=== PATIENT | female | born 1940 | race Two or more races ===

== ENCOUNTER 2017-11-10 20:22 | Emergency (ER) | payer MEDICARE ==
[~2017-11-10] VITALS: Ht 165.1 cm; Wt 74.8 kg
[2017-11-10 20:22] VITALS: BP 132/74
[2017-11-10] MEDS ORDERED: HYDROCODONE/APAP 5/325MG 1 EACH TABLET ONE (20:49)
[2017-11-10] MEDS ORDERED: ONDANSETRON 4 MG TAB.RAPDIS ONE (20:49)
[2017-11-10] MEDS ORDERED: ONDANSETRON 4 MG TAB.RAPDIS PO ONE (21:00)
[2017-11-10] MEDS ORDERED: HYDROCODONE/APAP 5/325MG 1 EACH TABLET PO ONE (21:00)
--- NOTE | 2017-11-10 21:51 | NUR ---
Giancarlo romero in EDM - 11/10/17 at 2351 by CHASIDY Patient discharged to home in stable condition. Written and verbal after care instructions along wit RX given. Patient verbalizes understanding of instruction. VSS upon discharge. pt ambulated with steady gait out of ER.
--- NOTE | 2017-11-10 22:00 | NUR ---
PT STATES HER SON WAS SUPPOSED TO PICK HER UP BUT SHE DOES NOT REMEBER HIS PHONE NUMBER. PT STATES SHE HAS NO CELLPHONE OR NOTEBOOK WITH HER FAMILIES PHONE NUMBERS ON HER. PT STATES SHE CAN TAKE A CAB BACK HOME AND HER SON WILL "MOST LIKELY BE HOME AND OPEN THE DOOR." PT STATES "ALL I NEED IS A WALKER AND I CAN GET HOME." PT WILL BE RESTING IN BED UNTIL SAFE TRANSPORT IS ARRANGED.
--- NOTE | 2017-11-10 22:22 | NUR ---
CALLED PATIENTS FRIEND [phone]
--- NOTE | 2017-11-10 23:50 | NUR ---
BEDSIDE SPEAKING WITH PT.
--- NOTE | 2017-11-10 23:55 | NUR ---
Patient is resting comfortably in bed with eyes closed. Easily aroused. VSS
[2017-11-10] MEDS ORDERED: oxyCODONE/APAP (5/325 MG) 1 UDTAB TABLET ONE (23:59)
[2017-11-11] MEDS ORDERED: oxyCODONE/APAP (5/325 MG) 1 UDTAB TABLET PO ONE
[2017-11-11] MEDS ORDERED: CEPHALEXIN MONOHYDRATE 500 MG CAPSULE PO ONE ×2
--- NOTE | 2017-11-11 01:02 | NUR ---
Patient is resting comfortably in bed with eyes closed. Easily aroused. VSS. No pt discomfort noted.
[2017-11-11] MEDS ORDERED: HYDROCODONE/APAP 10/325MG 1 EA TABLET PO ONE (04:00)
[2017-11-11] MEDS ORDERED: ONDANSETRON 4 MG TAB.RAPDIS SL ONE (04:00)
[2017-11-11] MEDS ORDERED: HYDROCODONE/APAP 10/325MG 1 EA TABLET ONE (04:49)
[2017-11-11] MEDS ORDERED: ONDANSETRON 4 MG TAB.RAPDIS ONE (04:50)
--- NOTE | 2017-11-11 06:40 | NUR ---
called RL, was told she would reach out to the pt's sister or other family members. RL states she will call [facility] back with any pertinent information
--- NOTE | 2017-11-11 08:09 | NUR ---
HARINDER MORALES (SON) [phone] PROVIDED BY [facility]
== END 2017-11-11 09:40 | disposition home or self-care (01) ==
LOC: ER 20:24
DX: S02.2XXA Fracture of nasal bones, initial encounter for closed fracture (principal); S01.21XA Laceration without foreign body of nose, initial encounter; S05.11XA Contusion of eyeball and orbital tissues, right eye, initial encounter; F41.9 Anxiety disorder, unspecified; I10 Essential (primary) hypertension; M25.559 Pain in unspecified hip; G89.29 Other chronic pain; R53.1 Weakness; Z88.2 Allergy status to sulfonamides; W01.198A Fall on same level from slipping, tripping and stumbling with subsequent striking against other object, initial encounter; Y93.89 Activity, other specified; Y92.89 Other specified places as the place of occurrence of the external cause; Y99.8 Other external cause status
CPT/HCPCS: 70450-TC; 70486-TC; 72125-TC; A4606; A6402; Q0162; Z7610

== ENCOUNTER 2017-12-12 22:36 | Inpatient (IN) | payer MEDICARE, OTHER ==
[~2017-12-12] VITALS: Ht 157.5 cm; Wt 79.4 kg
[2017-12-12] MEDS ORDERED: IV NS 0.9% 1,000 ML BAG IV ONE (23:00)
--- NOTE | 2017-12-12 23:00 | NUR ---
PT A/OX4 BREATHING EFFORTLESSLY ON ROOM AIR, PT STATES SHE IS HVAING DIARRHEA AND NAUSEA X 1 DAY, PT STATES IT STARTED EARLIER TODAY AND HAS NOT BEEN ABLE TO CLEAN HER SELF AND HAS 2 DIAPERS ON BUT WAS NOT ABLE TO CLEAN HERSELF, PT HAS DIARRHEA ON HANDS AND FOREARMS AND LEGS, PT PUT ON MONITOR, GIVEN GOWN, VSS, IV PLACED, LABS DRAWN, MD MADE AWARE WILL CONTINUE TO MONITOR.
[2017-12-12 23:19] LABS: BASOPHILS # (AUTO) 0.2 /CMM (0.0-0.2); BASOPHILS % (AUTO) 1.4 % (0.0-2.0); EOSINOPHILS % (AUTO) 3.8 % (0.0-6.0); HEMATOCRIT 43 % (33-45); HEMOGLOBIN 14.4 g/dL (11.5-14.8); LYMPHOCYTES % (AUTO) 7.9 % (20.0-44.0); MEAN CORPUSCULAR HGB CONC 34 g/dl (31.0-36.0); MEAN CORPUSCULAR VOLUME 96 fL (82-100); MONOCYTES # (AUTO) 0.6 /CMM (0.1-1.30); MONOCYTES % (AUTO) 4.7 % (2.0-12.0); NEUTROPHILS # (AUTO) 10.7 /CMM (1.8-8.9); NEUTROPHILS % (AUTO) 82.2 % (43.0-81.0); PLATELET COUNT (AUTO) 402 /CMM (150-450); RDW COEFFICIENT OF VARIATION 13.4 (11.5-15.0); RED BLOOD CELL COUNT(AUTO) 4.48 MIL/uL (4.0-5.2)
[2017-12-12] MEDS ORDERED: ONDANSETRON HCL/PF 4 MG/2 ML VIAL IV ONE (23:30)
--- NOTE | 2017-12-12 23:30 | NUR ---
PT DIRTY DIAPER REMOVED AND PT CLEANED WITH HELP OF TA HAMILTON, A NEW DIAPER WAS PUT ON AND NEW SHEETS WERE APPLIED TO THE BED, PT STATES SHE FEELS SO MUCH BETTER BEING CLEAN, MD MADE AWARE WILL CONTINUE TO MONITOR.
--- NOTE | 2017-12-12 23:40 | NUR ---
PT TO CT
[2017-12-12 23:41] LABS: CALCIUM, SERUM 9.5 mg/dL (8.5-10.1); CARBON DIOXIDE 22 mmol/L (21-32); CHLORIDE 107 mmol/L (98-107); CREATININE 0.5 mg/dL (0.6-1.3); GLUCOSE 126 mg/dL (74-106); POTASSIUM 3.1 mmol/L (3.5-5.1); SODIUM SERUM 143 mmol/L (136-145); UREA NITROGEN, BLOOD 11 mg/dL (7-18)
[2017-12-12 23:46] LABS: ALANINE AMINOTRANSFERASE 25 U/L (12-78); ALBUMIN 3.8 g/dL (3.4-5.0); ALKALINE PHOSPHATASE 164 U/L (46-116); ASPARTATE AMINOTRANSFERASE 25 U/L (15-37); BILIRUBIN,DIRECT 0.1 mg/dL (0.0-0.2); BILIRUBIN,TOTAL 0.5 mg/dL (0.2-1.0); LIPASE 165 U/L (73-393); TOTAL PROTEIN, SERUM 7.2 g/dL (6.4-8.2); TROPONIN I < 0.017 ng/mL (0.00-0.056)
[2017-12-12] MEDS ORDERED: ONDANSETRON HCL/PF 4 MG/2 ML VIAL ONE (23:51)
--- NOTE | 2017-12-12 23:51 | NUR ---
PT RETURNED FROM CT.
[2017-12-13] VITALS (7 sets, daily range): BP systolic 129–135; BP diastolic 56–70
[2017-12-13] MEDS ORDERED: POTASSIUM CHLORIDE 20 MEQ TAB.PRT.SR PO ONE ×4 (01:30→02:30)
[2017-12-13] MEDS ORDERED: ACETAMINOPHEN 325 MG TABLET PO PRN (02:00)
[2017-12-13] MEDS ORDERED: MAGNESIUM HYDROXIDE 30 ML UDC PO PRN (02:00)
[2017-12-13] MEDS ORDERED: ZOLPIDEM TARTRATE 5 MG TABLET PO PRN (02:00)
[2017-12-13] MEDS ORDERED: Z GUARD REMEDY 2 OZ OINT TP PRN (02:00)
[2017-12-13] MEDS ORDERED: ONDANSETRON HCL/PF 4 MG/2 ML VIAL IVP PRN (02:00)
[2017-12-13] MEDS ORDERED: ENOXAPARIN SODIUM 40 MG/0.4 ML DISP.SYRIN SQ SCH (02:00)
[2017-12-13] MEDS ORDERED: MAG HYDROX/AL HYDROX/SIMETH 30 ML UDC PO PRN (02:00)
--- NOTE | 2017-12-13 02:00 | NUR ---
REPORT GIVEN TO DIANNA/RN ON BEHALF OF PRIMARY NURSE RAMILA.
[2017-12-13] MEDS: IV NS 0.9% 1,000 ML IV PRN ×2 (02:44→18:29)
[2017-12-13] MEDS ORDERED: METRONIDAZOLE 500MG/ NS 100ML 100 ML IV ONE (02:45)
[2017-12-13] MEDS: ENOXAPARIN SODIUM 40 MG/0.4 ML DISP.SYRIN SQ SCH ×2 (02:56→21:17)
[2017-12-13] MEDS: LOPERAMIDE HCL (2 MG CAP) 2 MG CAPSULE PO PRN ×3 (02:56→21:16)
[2017-12-13] MEDS: METRONIDAZOLE 500MG/ NS 100ML 500 MG in PREMIX 1 EA IV SCH ×3 (03:00→21:18)
[2017-12-13] MEDS: HYDROCODONE/APAP 5/325MG 1 EACH TABLET PO PRN ×4 (03:00→11:40)
--- NOTE | 2017-12-13 03:00 | NUR ---
TIRE SERVICER NOTES PT C/O DIARRHEA. IMODIUM GIVEN ORDERED. WILL CONTINUE TO MONITOR
--- NOTE | 2017-12-13 06:50 | NUR ---
COMPUTER TERMINAL OPERATOR NOTES AWAKE & RESPONSIVE. NOT IN ANY DISTRESS. NO SOB NOTED. DENIES ANY PAIN OR DISCOMFORT AT THIS TIME. ON TELE SR @ 96 WITH IVF INFUSING WELL. AM CARE DONE. MONITORED ACCORDINGLY. CALL LIGHT WITHIN REACH. BED IN LOWEST POSITION. SR UP X 2 FOR SAFETY. WILL ENDORSE TO NEXT SHIFT.
--- NOTE | 2017-12-13 07:10 | NUR ---
TELE OPENING. PT RECEIVED A&0X3, AWAKE AND RESTING. PT TOLERATING ROOM AIR WITHOUT SOB OR RESP DISTRESS. PT REPORTS ADEQUATE PAIN MANAGEMENT AT THIS TIME. PT REPORTS MINOR ANXIETY. PT WITH IVC AT L IVC INTACT AND SALINE FLUSH PATENT. PT REPORTING BMX1. PT BED IN LOWEST LOCKED POSITION WITH HANDRAILSX2 AND CALL BARNETT WITHIN REACH. PT BRIEFED ON TODAY'S POC AND IS WITHOUT CONCERN OR COMPLAINT AT THIS TIME.
[2017-12-13] MEDS ORDERED: MULT1TAB73 PO (07:35)
[2017-12-13] MEDS ORDERED: HYDR-548 PO (07:35)
[2017-12-13] MEDS ORDERED: CHOL20004 PO (07:35)
[2017-12-13] MEDS ORDERED: BUTA1CAP46 PO (07:35)
[2017-12-13] MEDS ORDERED: ATOR40TA PO (07:35)
[2017-12-13] MEDS ORDERED: GABA400C PO (07:35)
[2017-12-13] MEDS ORDERED: NEBI5TAB8 PO (07:35)
[2017-12-13] MEDS ORDERED: FOLI1TAB16 PO (07:35)
[2017-12-13] MEDS: CHOLECALCIFEROL 1,000 UNIT TABLET (VIT D3) PO SCH (11:39)
[2017-12-13] MEDS: MULTIVITAMINS,THERAGRAN 1 UDTAB TABLET PO SCH (11:40)
--- NOTE | 2017-12-13 14:00 | NUR ---
DEHYDROGENATION OPERATOR NOTES. PT WITH SIGNIFICANT ANXIETY. MD REQUESTING XANAX 1MG TDS, ORDERS PLACED AND ADMINISTERED.
[2017-12-13] MEDS ORDERED: ALPRAZOLAM 1 MG TABLET PO SCH (14:06)
[2017-12-13] MEDS: GABAPENTIN 400 MG CAPSULE PO SCH ×3 (14:20→21:16)
[2017-12-13] MEDS: ARIPIPRAZOLE 2 MG TABLET PO SCH (15:00)
[2017-12-13] MEDS: BUTALB/APAP/CAFFEINE 1 EACH TABLET PO PRN (15:22)
[2017-12-13] MEDS: BUPROPION XL 150 MG TAB.ER.24 PO SCH (15:23)
--- NOTE | 2017-12-13 18:08 | NUR ---
TELE CLOSING NOTES. PT REMAINS A&0X3. TELE SR 75. PT TOLERATING ROOM AIR AND DENIES PAIN AND IS WITHOUT RESP DISTRESS DISCOMFORT. PT WITH BMX2 TODAY. NO NAUSE THIS AFTERNOON. PT REPORTS ADEQUATE PAIN MANAGEMENT AT THIS TIME. PT WITH IVC AT L IVC INTACT AND OPERATIONAL. PT BED IN LOWEST LOCKED POSITION WITH HANDRAILSX2 AND CALL BARNETT WITHIN REACH. ALL DAY NURSE DUTIES ATTENDED TO. PT IS WITHOUT CONCERN OR COMPLAINT AT THIS TIME. WILL ENDORSE TO NIGHT NURSE FOR FADIA.
--- NOTE | 2017-12-13 19:15 | NUR ---
MEAT PACKAGER NOTES RECEIVED PT ON BED. A/O X4 ON ROOM AIR SATURATING WELL. ON TELE MONITOR SR 75. IV ACCES ON RAC G20 NS @75CC/HR RUNNING WELL. PATENT AND INTACT. HEAD OF BED ELEVATED. SIDE RAILS UP. CALL LIGHT WITHIN REACH. WILL CONTINUE TO MONITOR PT CLOSELY.
[2017-12-13] MEDS: LORAZEPAM 1 MG TABLET PO PRN (21:17)
[2017-12-13] MEDS ORDERED: ATORVASTATIN 40 MG TABLET PO SCH (22:00)
[2017-12-14] VITALS: BP 136/72
[2017-12-14] MEDS: HYDROCODONE/APAP 5/325MG 1 EACH TABLET PO PRN ×2 (01:39→13:49)
[2017-12-14 04:00] VITALS: BP 143/72
[2017-12-14] MEDS: GABAPENTIN 400 MG CAPSULE PO SCH ×3 (06:03→15:12)
[2017-12-14] MEDS: METRONIDAZOLE 500MG/ NS 100ML 500 MG in PREMIX 1 EA IV SCH ×2 (06:03→12:48)
--- NOTE | 2017-12-14 06:34 | NUR ---
EDGING MACHINE CATCHER NOTES NO ACUTE CHANGES NOTED DURING THE SHIFT. PROVIDED COMFORT AND SAFETY. WILL ENDORSE TO THE AM NURSE FOR FADIA.
[2017-12-14 06:43] LABS: BASOPHILS % (AUTO) 0.7 % (0.0-2.0); EOSINOPHILS % (AUTO) 11.3 % (0.0-6.0); HEMATOCRIT 35 % (33-45); LYMPHOCYTES # (AUTO) 1.9 /CMM (0.8-4.8); LYMPHOCYTES % (AUTO) 27.2 % (20.0-44.0); MEAN CORPUSCULAR HGB CONC 34 g/dl (31.0-36.0); MEAN CORPUSCULAR VOLUME 97 fL (82-100); MONOCYTES # (AUTO) 0.9 /CMM (0.1-1.30); MONOCYTES % (AUTO) 12.1 % (2.0-12.0); NEUTROPHILS # (AUTO) 3.5 /CMM (1.8-8.9); NEUTROPHILS % (AUTO) 48.7 % (43.0-81.0); PLATELET COUNT (AUTO) 309 /CMM (150-450); RDW COEFFICIENT OF VARIATION 14.2 (11.5-15.0); RED BLOOD CELL COUNT(AUTO) 3.64 MIL/uL (4.0-5.2); WHITE BLOOD COUNT (AUTO) 7.2 K/uL (4.3-11.0)
[2017-12-14 06:49] LABS: CALCIUM, SERUM 8.4 mg/dL (8.5-10.1); CARBON DIOXIDE 23 mmol/L (21-32); CHLORIDE 114 mmol/L (98-107); CREATININE 0.6 mg/dL (0.6-1.3); GLUCOSE 85 mg/dL (74-106); MAGNESIUM 1.7 mg/dL (1.8-2.4); PHOSPHORUS 3.7 mg/dL (2.5-4.9); POTASSIUM 3.5 mmol/L (3.5-5.1); SODIUM SERUM 147 mmol/L (136-145); UREA NITROGEN, BLOOD 5 mg/dL (7-18)
--- NOTE | 2017-12-14 07:35 | NUR ---
WEB DEVELOPMENT DIRECTOR NOTE: RECEIVED PATIENT IN BED, AWAKE, ALERT AND VERBALLY RESPONSIVE WATCHING TELEVISION. RESPIRATION IS EVEN AND UNLABORED SATURATING 97% IN ROOM AIR. ON BOLT SAWYER, SR HR= 82. DENIED ANY PAIN. (R) AC IV PERIPHERAL LINE NOTED PATENT AND INTACT INFUSING NS@75CC/HR. BED LOCKED AT ALL TIMES AND IN LOWEST POSITION. HOB ELEVATED. WILL MONITOR FOR ANY EPISODE OF DIARRHEA. CALL LIGHT WITHIN REACH. NEEDS ANTICIPATED.
[2017-12-14 08:00] VITALS: BP 146/61
[2017-12-14] MEDS: MULTIVITAMINS,THERAGRAN 1 UDTAB TABLET PO SCH (08:21)
[2017-12-14] MEDS: CHOLECALCIFEROL 1,000 UNIT TABLET (VIT D3) PO SCH (08:21)
[2017-12-14] MEDS: ARIPIPRAZOLE 2 MG TABLET PO SCH (08:21)
[2017-12-14] MEDS: BUPROPION XL 150 MG TAB.ER.24 PO SCH (08:22)
[2017-12-14] MEDS ORDERED: FOLIC ACID 1 MG TABLET PO SCH (09:00)
[2017-12-14] MEDS: Magnesium 1GM/D5W 100ML PREMIX 100 ML IV SCH ×2 (10:29→11:35)
[2017-12-14 11:12] LABS: EOSINOPHILS % (MANUAL) 16 % (0-4); LYMPHOCYTES % (MANUAL) 12 % (16-48); MONOCYTES % (MANUAL) 6 % (0-11.0); NEUTROPHILS % (MANUAL) 66 (42-76)
[2017-12-14] MEDS: BUTALB/APAP/CAFFEINE 1 EACH TABLET PO PRN (11:17)
[2017-12-14] MEDS ORDERED: BUPR-51 PO (12:02)
[2017-12-14] MEDS ORDERED: ARIP2TAB3 PO (12:02)
[2017-12-14] MEDS: LORAZEPAM 1 MG TABLET PO PRN (12:51)
--- NOTE | 2017-12-14 14:33 | NUR ---
Social service consult requested by Dr. Kaufman to provide pt. with resources. Pt. is a 77 year old female who was admitted to [facility] for Diarrhea and generalized weakness. CHAR and bilingual patient support caseworker Lele met with pt. bedside. Pt. is alert and oriented x 4. Pt. has been suffering from depression for years and taking antidepressant. However, since the of her daughter, pt's depression has gotten worse. Pt. has taken Xanax in the past. Pt's emergency contact is her son at [phone]. Pt. resides with her son. Pt. got teary eyed during the assessment. Pt. has been to therapy before in the past and would like to see a psychologist in the near future. CHAR gave pt. the following referrals: Becky Devries and Hieu Vargas . SW provided active listening and emotional support to the pt. SW also offered pt. grief counseling, however pt. declined. No other social service needs are requested at this time. SW is available, if needed.
[2017-12-14 16:00] VITALS: BP_SYST 149; BP_SYST 185; BP_DIAS 63; BP_DIAS 82
--- NOTE | 2017-12-14 17:15 | NUR ---
MS RN NOTE: PATIENT WAS DISCHARGED W/ HIS SON, ANDREW POWER VIA PRIVATE CAR. EXIT CARE WAS DONE. PATIENT TEACHING WAS ALSO PERFORMED. PRESCRIPTION FOR ABILIFY AND WELLBUTRIN WAS GIVEN AND THE REFERRALS FOR PSYCHOLOGIST W/ TELEPHONE NUMBERS FROM THE PASSENGER REPRESENTATIVE. THE FOLLOW-UP APPOINTMENT AT [facility] WAS ALSO GIV[facility] FOR 12/17/17 @1330. PATIENT AND ANDREW, SON WAS IN A HURRY TO LEAVE THE HOSPITAL DUE TO PERSONAL REASON. PATIENT'S (R) AC IV LINE WAS REMOVED AND COVERED W/ DRY GAUZE AND SECURED W/ TAPE. NO EPISODE OF DIARRHEA NOTED DURING THE SHIFT. PATIENT VERBALIZED UNDERSTANDING AND AWARE OF THE FOLLOW-UP APPOINTMENTS AND REFERRALS MADE FOR HER. ALL BELONGINGS AND HOME MEDICATIONS WERE RELEASED BACK TO THE PATIENT UPON DISCHARGE.
[2018-02-24] MEDS ORDERED: LORA1TAB PO (09:37)
[2018-02-24] MEDS ORDERED: ARIP5TAB10 PO (09:37)
== END 2017-12-14 15:00 | disposition home or self-care (01) | DRG 392 ==
LOC: ER 22:38 → MEDSG1 12-13 02:09 → TELE1 12-13 02:20 → MEDSG1 12-14 08:55
PROVIDERS: ADMIT Internal Medicine; ATTEND Internal Medicine
DX: A09 Infectious gastroenteritis and colitis, unspecified (principal); F33.2 Major depressive disorder, recurrent severe without psychotic features; E86.0 Dehydration; E78.5 Hyperlipidemia, unspecified; I10 Essential (primary) hypertension; F41.9 Anxiety disorder, unspecified; Z88.2 Allergy status to sulfonamides; M16.10 Unilateral primary osteoarthritis, unspecified hip; Z90.710 Acquired absence of both cervix and uterus; Z81.8 Family history of other mental and behavioral disorders; F43.29 Adjustment disorder with other symptoms; G43.909 Migraine, unspecified, not intractable, without status migrainosus; D72.829 Elevated white blood cell count, unspecified
CPT/HCPCS: 36415; 80048-TC; 80076-TC; 83690-TC; 83735-TC; 84100-TC; 84484-TC; 85025-TC; 87081-TC; A4216; A4606; J1650; J2405; J3475; J3490; J7030; Z7610

== ENCOUNTER 2018-02-05 08:31 | Emergency (ER) | payer MEDICARE, OTHER ==
[~2018-02-05] VITALS: Ht 167.6 cm; Wt 81.6 kg
[~2018-02-05 08:31] MED LIST: ARIP2TAB3 PO; ATOR40TA PO; BUPR-51 PO; BUTA1CAP46 PO; CHOL20004 PO; FOLI1TAB16 PO; GABA400C PO; HYDR-548 PO; MULT1TAB73 PO; NEBI5TAB8 PO
--- NOTE | 2018-02-05 08:35 | NUR ---
AAOX3, BIBRA 41 FROM HOME C/O R SHOULDER AND BACK PAIN WHEN SHE WOKE UP THIS AM. RR IS EVEN AND UNLABORED WITH NAD NOTED. SKIN IS WARM AND DRY. AWAITING MD FOR EVAL.
--- NOTE | 2018-02-05 08:47 | NUR ---
TA MORRIS AT FOR CECI.
[2018-02-05] MEDS ORDERED: KETOROLAC TROMETHAMINE INJ 30 MG/ML VIAL IM ONE (09:00)
--- NOTE | 2018-02-05 09:35 | NUR ---
Patient discharged to home in stable condition. Written and verbal after care instructions given. Patient verbalizes understanding of instruction.
--- NOTE | 2018-02-05 09:40 | NUR ---
BLAKE,SON, CALLED, CELL#[phone], WORK PHONE# [phone], [facility] PATIENT LIVE ALONE AND CAN'T TAKE CARE OF HERSELF. PATIENT SAID THAT SHE LIVES WITH HER SON, BLAKE, AND ALL SHE IS ACTUALLY ALL DRESSED UP READY TO GO.
[2018-02-05 09:41] VITALS: BP 162/75
[2018-02-24] MEDS ORDERED: ARIP5TAB10 PO (09:37)
[2018-02-24] MEDS ORDERED: LORA1TAB PO (09:37)
== END 2018-02-05 09:43 | disposition home or self-care (01) ==
LOC: ER 08:33
DX: S46.911A Strain of unspecified muscle, fascia and tendon at shoulder and upper arm level, right arm, initial encounter (principal); S23.3XXA Sprain of ligaments of thoracic spine, initial encounter; G89.4 Chronic pain syndrome; I10 Essential (primary) hypertension; R94.31 Abnormal electrocardiogram [ECG] [EKG]; Z88.2 Allergy status to sulfonamides; X58.XXXA Exposure to other specified factors, initial encounter; Y93.89 Activity, other specified; Y92.89 Other specified places as the place of occurrence of the external cause; Y99.8 Other external cause status
CPT/HCPCS: 93005; 96372; 99283; A4606; 73502; Z7610

== ENCOUNTER 2018-02-05 10:54 | Outpatient (CLI) | payer MEDICARE ==
[2018-02-24] MEDS ORDERED: LORA1TAB PO (09:37)
[2018-02-24] MEDS ORDERED: ARIP5TAB10 PO (09:37)
== END 2018-02-05 23:59 | disposition home or self-care (01) ==
LOC: RAD 10:54
PROVIDERS: ATTEND Family Medicine
DX: M16.12 Unilateral primary osteoarthritis, left hip (principal); M47.896 Other spondylosis, lumbar region
CPT/HCPCS: 73502

== ENCOUNTER 2018-02-05 14:22 | Emergency (ER) | payer MEDICARE, OTHER ==
[~2018-02-05] VITALS: Ht 162.6 cm; Wt 72.6 kg
--- NOTE | 2018-02-05 14:31 | NUR ---
A/OX3, PT CAME TO ER AND WAS SENT BY DR BARFIELD FOR HIGH BP. UPON TRIAGE ASSESSMENT, BP IS 192/108. PT DENIES CHEST PAIN OR SOB. SKIN IS WARM AND NON DIAPHROETC. RR EVEN AND UNLABORED. ALL NEEDS ARE ATTEBDED, KEPT WARM AND COMFORTABLE. PENDING ER MD EVALUATION
[2018-02-05 15:34] LABS: BASOPHILS # (AUTO) 0.4 /CMM (0.0-0.2); BASOPHILS % (AUTO) 2.9 % (0.0-2.0); EOSINOPHILS % (AUTO) 3.1 % (0.0-6.0); HEMATOCRIT 44 % (33-45); HEMOGLOBIN 14.9 g/dL (11.5-14.8); LYMPHOCYTES # (AUTO) 5.3 /CMM (0.8-4.8); LYMPHOCYTES % (AUTO) 44.2 % (20.0-44.0); MEAN CORPUSCULAR HGB CONC 34 g/dl (31.0-36.0); MEAN CORPUSCULAR VOLUME 94 fL (82-100); MONOCYTES # (AUTO) 1.1 /CMM (0.1-1.30); NEUTROPHILS % (AUTO) 40.8 % (43.0-81.0); PLATELET COUNT (AUTO) 382 /CMM (150-450); RDW COEFFICIENT OF VARIATION 14.1 (11.5-15.0); RED BLOOD CELL COUNT(AUTO) 4.66 MIL/uL (4.0-5.2); WHITE BLOOD COUNT (AUTO) 12.2 K/uL (4.3-11.0)
[2018-02-05 15:45] LABS: CALCIUM, SERUM 9.7 mg/dL (8.5-10.1); CARBON DIOXIDE 25 mmol/L (21-32); CHLORIDE 106 mmol/L (98-107); CREATININE 0.8 mg/dL (0.6-1.3); GLUCOSE 86 mg/dL (74-106); POTASSIUM 3.7 mmol/L (3.5-5.1); SODIUM SERUM 140 mmol/L (136-145); UREA NITROGEN, BLOOD 16 mg/dL (7-18)
[2018-02-05 15:52] LABS: INR 0.89 (0.85-1.15)
[2018-02-05 15:54] LABS: TROPONIN I < 0.017 ng/mL (0.00-0.056)
[2018-02-05] MEDS ORDERED: IOHEXOL-350 100 ML VIAL IV ONE (15:56)
--- NOTE | 2018-02-05 16:30 | NUR ---
Patient is resting comfortably in bed with eyes closed. Easily aroused. VSS
[2018-02-05] MEDS ORDERED: CLONIDINE HCL 0.1 MG TABLET ONE (17:14)
[2018-02-05] MEDS ORDERED: TRAMADOL HCL 50 MG TABLET ONE (17:14)
--- NOTE | 2018-02-05 17:24 | NUR ---
Patient discharged to home in stable condition. Written and verbal after care instructions given. Patient verbalizes understanding of instruction. Patient is aaox3, patient states that she's going to call [employer].
[2018-02-05 17:25] VITALS: BP 155/98
[2018-02-05] MEDS ORDERED: TRAMADOL HCL 50 MG TABLET PO ONE (17:30)
[2018-02-05] MEDS ORDERED: CLONIDINE HCL 0.1 MG TABLET PO ONE (17:30)
[2018-02-24] MEDS ORDERED: LORA1TAB PO (09:37)
[2018-02-24] MEDS ORDERED: ARIP5TAB10 PO (09:37)
== END 2018-02-05 17:27 | disposition home or self-care (01) ==
LOC: ER 14:25
DX: M54.6 Pain in thoracic spine (principal); I10 Essential (primary) hypertension; F41.9 Anxiety disorder, unspecified; G89.29 Other chronic pain; M19.90 Unspecified osteoarthritis, unspecified site; F32.9 Major depressive disorder, single episode, unspecified; E78.5 Hyperlipidemia, unspecified; Z88.2 Allergy status to sulfonamides; Z98.890 Other specified postprocedural states
CPT/HCPCS: 36415; 71045; 71275; 80048; 84484; 85025; 85730; 93005; 99285; A4606; Q9967; Z7610

== ENCOUNTER 2018-02-21 04:08 | Inpatient (IN) | payer MEDICARE ==
[~2018-02-21] VITALS: Ht 167.6 cm; Wt 74.8 kg
--- NOTE | 2018-02-21 03:00 | NUR ---
PATIENT WALKED WITH PHYSICAL THERAPY AROUND THE UNIT. WILL REVIEW THE EVALUATION NOTES.
--- NOTE | 2018-02-21 04:18 | NUR ---
CALLED LAB FOR BLOOD/URINE SUPERVISOR PRODUCTION MANAGING.
--- NOTE | 2018-02-21 04:18 | NUR ---
BIBRA 41 FROM HOME C/O RIGHT UPPER BACK PAIN. FOUND ON MATRESS SURROUNDED BY MEDICATION. FIELD BS 143. PT AOX2, SLOW TO RESPOND TO QUESTIONS BEING ASKED. SKIN WNL. RESP EVEN AND UNLABORED. NO S/S OF ACUTE DISTRESS NOTED. PT PLACED ON VETERINARY BACTERIOLOGIST AND POX. PT SAFETY AND COMFORT MEASURES IN PLACE. WILL CONTINUE TO MONITOR PT. MD BEDSIDE FOR EVAL.
[2018-02-21 04:52] LABS: APPEARANCE,URINE SL CLOUDY (CLEAR); BASOPHILS % (AUTO) 0.3 % (0.0-2.0); BILIRUBIN,URINE NEGATIVE (NEGATIVE); BLOOD, URINE NEGATIVE Ery/uL (NEGATIVE); COLOR,URINE YELLOW (YELLOW); EOSINOPHILS % (AUTO) 1.1 % (0.0-6.0); HEMATOCRIT 41 % (33-45); HEMOGLOBIN 13.4 g/dL (11.5-14.8); KETONES,URINE NEGATIVE (NEGATIVE); LEUKOCYTE ESTERASE ,URINE NEGATIVE (NEGATIVE); LYMPHOCYTES # (AUTO) 1.5 /CMM (0.8-4.8); LYMPHOCYTES % (AUTO) 16.8 % (20.0-44.0); MEAN CORPUSCULAR HEMOGLOBIN 32 PG (26.0-33.0); MEAN CORPUSCULAR HGB CONC 33 g/dl (31.0-36.0); MEAN CORPUSCULAR VOLUME 98 fL (82-100); MONOCYTES # (AUTO) 0.8 /CMM (0.1-1.30); NEUTROPHILS # (AUTO) 6.3 /CMM (1.8-8.9); NEUTROPHILS % (AUTO) 72.8 % (43.0-81.0); NITRITE, URINE NEGATIVE (NEGATIVE); PH,URINE 6.5 (5.0-8.0); PLATELET COUNT (AUTO) 375 /CMM (150-450); PROTEIN,URINE NEGATIVE (NEGATIVE); RDW COEFFICIENT OF VARIATION 16.2 (11.5-15.0); RED BLOOD CELL COUNT(AUTO) 4.16 MIL/uL (4.0-5.2); UGLUCOSE NEGATIVE (NEGATIVE); WHITE BLOOD COUNT (AUTO) 8.6 K/uL (4.3-11.0)
[2018-02-21] MEDS ORDERED: LORAZEPAM INJ 2 MG/ML VIAL ONE (04:56)
[2018-02-21 04:59] LABS: CARBON DIOXIDE 24 mmol/L (21-32); CHLORIDE 105 mmol/L (98-107); CREATININE 0.9 mg/dL (0.6-1.3); GLUCOSE 136 mg/dL (74-106); POTASSIUM 3.8 mmol/L (3.5-5.1); SODIUM SERUM 141 mmol/L (136-145); UREA NITROGEN, BLOOD 11 mg/dL (7-18)
[2018-02-21] MEDS ORDERED: LORAZEPAM INJ 2 MG/ML VIAL IV ONE (05:00)
[2018-02-21 05:01] LABS: INR 0.88 (0.87-1.13)
--- NOTE | 2018-02-21 05:01 | NUR ---
PT IN BED RESTLESS AND UNABLE TO FOLLOW COMMANDS. VSS. WILL CONTINUE TO MONITOR PT. MADE AWARE
[2018-02-21 05:05] LABS: ACETAMINOPHEN 4 ug/ml (10-30); ALANINE AMINOTRANSFERASE 27 U/L (12-78); ALBUMIN 3.6 g/dL (3.4-5.0); ALCOHOL, BLOOD < 3 mg/dL (0-0); ALKALINE PHOSPHATASE 110 U/L (46-116); ASPARTATE AMINOTRANSFERASE 19 U/L (15-37); BILIRUBIN,TOTAL 0.4 mg/dL (0.2-1.0); SALICYLATE 1.5 mg/dL (2.8-20.0); TOTAL PROTEIN, SERUM 7.1 g/dL (6.4-8.2)
[2018-02-21 05:06] LABS: TROPONIN I < 0.017 ng/mL (0.00-0.056)
[2018-02-21 05:14] LABS: BACTERIA,URINE Many /HPF (None Seen); SQUAMOUS EPITHELIAL CELL,UR Few /HPF (None Seen)
[2018-02-21] MEDS ORDERED: HALOPERIDOL LACTATE INJ 5 MG/ML VIAL ONE (05:28)
[2018-02-21] MEDS ORDERED: HALOPERIDOL LACTATE INJ 5 MG/ML VIAL IM ONE (05:30)
[2018-02-21] MEDS ORDERED: CEFTRIAXONE 1GM BAG (ER ONLY) 50 ML IV ONE ×2 (06:42→07:00)
--- NOTE | 2018-02-21 07:25 | NUR ---
PT VSS. A/O X1 CONFUSED/RESTLESS. RECIEVED REPORT FROM ZAID KHAN
[2018-02-21] MEDS ORDERED: IV NS 0.9% 1,000 ML BAG IV ONE (07:30)
--- NOTE | 2018-02-21 08:15 | NUR ---
REPORT GIVEN TO ZAID ARPITA 3WEST
--- NOTE | 2018-02-21 08:20 | NUR ---
REPORT RECEIVED FROM TRAFFIC CONTROLLER CABLE CHELITA. WILL ADMIT THE PATIENT TO TELEMETRY FLOOR PER MD ORDERS.
[2018-02-21] MEDS ORDERED: DULO60CA45 PO (08:30)
[2018-02-21] MEDS ORDERED: SOLI10TA2 PO (08:30)
[2018-02-21] MEDS ORDERED: ARIP2TAB3 PO (08:30)
[2018-02-21] MEDS ORDERED: LOSA50TA21 PO (08:30)
[2018-02-21] MEDS ORDERED: ARIPIPRAZOLE 2 MG TABLET PO SCH (09:00)
[2018-02-21] MEDS ORDERED: MAGNESIUM HYDROXIDE 30 ML UDC PO PRN (09:00)
[2018-02-21] MEDS ORDERED: ONDANSETRON HCL/PF 4 MG/2 ML VIAL IVP PRN (09:00)
[2018-02-21] MEDS ORDERED: Z GUARD REMEDY 2 OZ OINT TP PRN (09:00)
[2018-02-21] MEDS ORDERED: MAG HYDROX/AL HYDROX/SIMETH 30 ML UDC PO PRN (09:00)
[2018-02-21] MEDS ORDERED: Medication Not On Formulary EA (Nebivolol Hcl (Bystolic) 5 MG) PO SCH (09:00)
--- NOTE | 2018-02-21 09:00 | NUR ---
MELLOWING MACHINE OPERATORORACLE IAM CONSULTANT NOTE RECEIVED PATIENT FROM ER. BROUGHT ON A GURNEY. PATIENT WITH ALTERED LOC. SLEEPING, AROUSED WITH VERBAL STIMULI BUT RESPONDS WITH MUMBLING SPEECH AND FALLS BACK TO SLEEP IMMEDIATELY. ON ROOM AIR, TOLERATING WELL. RESPIRATIONS EVEN AND UNLABORED. IN NO APPARENT DISTRESS OR DISCOMFORT AT THIS TIME. PAIN WAS ASSESSED WITH FLACC SCALE WITH THE SCORE OF 0. PUPILS ARE EQUALLY ROUND AND REACTIVE AT THIS TIME. WAS PLACED ON ITEM REPAIR MANAGER. FULL BODY ASSESSMENT COMPLETE, VITAL SIGNS TAKEN AND RECORDED, PICTURES TAKEN AND PLACED IN THE CHART. BELONGINGS LIST IS REVIEWED BY TWO STAFF MEMBERS, SIGNED AND WAS PLACED IN CHART. RIGHT FA 18G IVC, PATENT AND INTACT. PATIENT IS UNABLE TO COMMUNICATE NEEDS AT THIS TIME. UNABLE TO COMPREHEND TEACHINGS AT THIS TIME. CONTINUOUS ORIENTATION TO BE PERFORMED PATIENT'S CONDITION IMPROVES. SAFETY MEASURES APPLIED. BED IN LOW LOCKED POSITION, SIDE RAILS UP X3, BED ALARM ON, CALL LIGHT WITHIN EASY REACH. WILL CARRY OUT ADMISSION ORDERS AND CONTINUE TO MONITOR.
[2018-02-21 10:00] VITALS: BP 148/73
[2018-02-21] MEDS: CHOLECALCIFEROL 1,000 UNIT TABLET (VIT D3) PO SCH (10:08)
[2018-02-21] MEDS: LOSARTAN POTASSIUM 50 MG TABLET PO SCH (10:09)
[2018-02-21] MEDS: OXYBUTYNIN CHLORIDE 5 MG TABLET PO SCH ×3 (10:09→17:15)
[2018-02-21] MEDS: FOLIC ACID 1 MG TABLET PO SCH (10:09)
[2018-02-21] MEDS: IV NS 0.9% 1,000 ML IV PRN (10:17)
--- NOTE | 2018-02-21 12:00 | NUR ---
PATIENT LOC IS IMPROVING. ALERT, ORIENTED X2-3 AT THIS TIME. SPEECH IS MORE CLEAR. ABLE TP COMMUNICATE NEEDS AND TELL ABOUT HERSELF, HER FAMILY AND HER HISTORY. UNABLE TO RECALL THE RECENT EVENTS THAT LED HER TO BE TRANSFERRED TO ER. WILL CONTINUE TO MONITOR.
[2018-02-21] MEDS ORDERED: LORAZEPAM 1 MG TABLET PO PRN (15:00)
[2018-02-21 16:00] VITALS: BP 162/69
--- NOTE | 2018-02-21 19:30 | NUR ---
TELE/RN RECEIVE PATIENT SLEEPING, AROUSABLE, APPEAR COMFORTABLE, BREATHING EVEN AND UNLABORED, CALL LIGHT IN REACH. WILL MONITOR.
--- NOTE | 2018-02-21 19:42 | NUR ---
FURNITURE LUMBER PRODUCTION WORKER CLOSING NOTE PATIENT IN BED, SLEEPING, EASILY AROUSED WITH VERBAL STIMULI, ORIENTED X2-3. ON ROOM AIR, TOLERATING WELL. RESPIRATION EVEN AND UNLABORED. IN NO APPARENT DISTRESS OR DISCOMFORT AT THIS TIME. RIGHT HAND IVC 18G, WITH FLUIDS RUNNING AT 125ML/HR. NO SIGN OF INFILTRATION NOTED AT THIS TIME. ON TELE MONITORING WITH SR AND HR OF 76. PATIENT IS ABLE TO COMMUNICATE NEEDS BETTER AT THIS TIME. ALL NEEDS ATTENDED, KEPT CLEAN AND COMFORTABLE, SAFETY MEASURES IN PLACE, BED IN LOW LOCKED POSITION, SIDE RAILS UP X3, BED ALARM ON, CALL LIGHT WITHIN EASY REACH. WILL ENDORSE TO AM NURSE FOR FADIA.
[2018-02-21 20:00] VITALS: BP 135/61
[2018-02-21] MEDS: ATORVASTATIN 40 MG TABLET PO SCH (21:44)
[2018-02-21] MEDS: METOPROLOL TARTRATE 25 MG TABLET PO SCH (21:45)
--- NOTE | 2018-02-21 22:01 | NUR ---
TELE/RN PATIENT IS AWAKE AT THIS TIME, ORIENTED X 4, COMFORTABLE, NO C/O PAIN, NO DISTRESS NOTED, DUE MEDS WERE GIVEN. WILL CONTINUE TO MONITOR.
[2018-02-22] VITALS: BP 138/69
[2018-02-22] MEDS: IV NS 0.9% 1,000 ML IV PRN ×2 (00:28→14:03)
[2018-02-22 04:00] VITALS: BP 163/67
[2018-02-22] MEDS: ACETAMINOPHEN 325 MG TABLET PO PRN ×4 (04:40→22:56)
--- NOTE | 2018-02-22 04:44 | NUR ---
TELE/RN C/O HEADACHE, TYLENO 650 MG ANGELITO WAS GIVEN ORDERED. WILL MONITOR.
[2018-02-22] MEDS: LOSARTAN POTASSIUM 50 MG TABLET PO SCH (06:16)
--- NOTE | 2018-02-22 06:28 | NUR ---
TELE/RN BP 168/68, COZAAR 50 MG ANGELITO WAS GIVEN EARLY, PATIENT HAS NO BP MED PRN. WILL MONITOR.
--- NOTE | 2018-02-22 06:29 | NUR ---
TELE/RN ALL NEEDS ATTENDED AT THIS TIME, NO CHANGE IN CONDITION.
[2018-02-22 06:59] LABS: BASOPHILS # (AUTO) 0.1 /CMM (0.0-0.2); BASOPHILS % (AUTO) 1.1 % (0.0-2.0); HEMATOCRIT 40 % (33-45); HEMOGLOBIN 13.5 g/dL (11.5-14.8); LYMPHOCYTES # (AUTO) 2.2 /CMM (0.8-4.8); MEAN CORPUSCULAR HEMOGLOBIN 33 PG (26.0-33.0); MEAN CORPUSCULAR HGB CONC 34 g/dl (31.0-36.0); MEAN CORPUSCULAR VOLUME 98 fL (82-100); MONOCYTES # (AUTO) 0.9 /CMM (0.1-1.30); MONOCYTES % (AUTO) 9.6 % (2.0-12.0); NEUTROPHILS # (AUTO) 5.9 /CMM (1.8-8.9); NEUTROPHILS % (AUTO) 61.3 % (43.0-81.0); PLATELET COUNT (AUTO) 361 /CMM (150-450); RDW COEFFICIENT OF VARIATION 15.6 (11.5-15.0); WHITE BLOOD COUNT (AUTO) 9.6 K/uL (4.3-11.0)
[2018-02-22 07:05] LABS: CALCIUM, SERUM 8.4 mg/dL (8.5-10.1); CARBON DIOXIDE 22 mmol/L (21-32); CHLORIDE 110 mmol/L (98-107); CREATININE 0.6 mg/dL (0.6-1.3); GLUCOSE 82 mg/dL (74-106); MAGNESIUM 1.9 mg/dL (1.8-2.4); POTASSIUM 3.5 mmol/L (3.5-5.1); SODIUM SERUM 143 mmol/L (136-145); UREA NITROGEN, BLOOD 8 mg/dL (7-18)
--- NOTE | 2018-02-22 07:20 | NUR ---
TELE/RN OPENING NOTE PATIENT ALERT AND ORIENTED X4. DENIES SOB. RESPIRATION REGULAR AND UNLABORED. DENIES PAIN. PATIENT ON TELE MONITORING. NPO EXCEPT MEDS. RFA G 18 PATENT AND SALINE LOCKED. BED LOW AND LOCKED. SIDE RAILS UP X3. CALL LIGHT WITHIN REACH. WILL CONTINUE TO MONITOR.
[2018-02-22 07:25] LABS: CHOLESTEROL 184 mg/dL (<200); HDL CHOLESTEROL 85 mg/dL (40-60); LDL 80 mg/dL (0-99); TRIGLYCERIDES 93 mg/dL (30-150)
--- NOTE | 2018-02-22 07:52 | NUR ---
TELE/RN NOTE PATIENT STATED THAT TODAY IN THE MORNING SHE FLUSHED ONE OF HER RINGS TO THE TOILET ACCIDENTLY. PER PATIENT " BUT IT`S OK IT WAS NOT AN EXPENSIVE RING, IT WAS REGULAR, CHEAP RING."
[2018-02-22 08:00] VITALS: BP 146/77
[2018-02-22] MEDS: OXYBUTYNIN CHLORIDE 5 MG TABLET PO SCH ×3 (08:41→16:46)
[2018-02-22] MEDS: DULOXETINE HCL 30 MG CAPSULE.DR PO SCH (08:41)
[2018-02-22] MEDS: FOLIC ACID 1 MG TABLET PO SCH (08:41)
[2018-02-22] MEDS: METOPROLOL TARTRATE 25 MG TABLET PO SCH ×2 (08:42→21:16)
[2018-02-22] MEDS: ARIPIPRAZOLE 5 MG TABLET PO SCH (08:42)
[2018-02-22] MEDS: CHOLECALCIFEROL 1,000 UNIT TABLET (VIT D3) PO SCH (08:42)
[2018-02-22] MEDS: MULTIVITAMINS,THERAGRAN 1 UDTAB TABLET PO SCH (08:54)
[2018-02-22] MEDS ORDERED: IV NS 0.9% 1,000 ML BAG IV SCH (09:00)
--- NOTE | 2018-02-22 12:54 | NUR ---
MS/RN NOTE PATIENT IS SEEN BY DR ÁLVAREZ WITH NEW DIET ORDER. READ BACK, VERIFIED, NOTED AND CARRIED OUT.
--- NOTE | 2018-02-22 14:08 | NUR ---
MS/RN NOTE RETAIL PRODUCT DEMO SPECIALIST SATISH MADE AWARE ABOUT EVAL FOR PLACEMENT ACUTE REHAB VS GEROPSYCH DR ÁLVAREZ ASKED.
[2018-02-22 16:00] VITALS: BP 143/78
--- NOTE | 2018-02-22 16:37 | NUR ---
MS/RN NOTE PER DR ÁLVAREZ ORDER DIET IS ADVANCED TOLERATED.
--- NOTE | 2018-02-22 18:44 | NUR ---
MS/RN CLOSING NOTE PATIENT ALERT AND ORIENTED X4 WITH EPISODES OF FORGETFULNESS. REMINDERS PROVIDED NEEDED. DENIES SOB. RESPIRATION REGULAR AND UNLABORED. DENIES PAIN. PATIENT IN NO APPARENT DISTRESS. CONTINENT AND ASSISTED USING BEDSIDE COMMODE. LEFT HAND G 22 PATENT AND IV INFUSING WITH N S/S INFILTRATION. BED LOW AND LOCKED. SIDE RAILS UP X3. CALL LIGHT WITHIN REACH. WILL ENDORSE TO FLOOR SANDER.
--- NOTE | 2018-02-22 19:30 | NUR ---
MS/RN RECEIVE PATIENT AWAKE, ALERT, ORIENTED, COMFORTABLE, ASSISTED TO THE BSC AND BACK TO BED, TOLERATED. PLAN OF CARE DISCUSSED, VERBALIZED UNDERSTANDING, CALL LIGHT IN REACH. WILL MONITOR.
[2018-02-22 20:00] VITALS: BP 160/78
[2018-02-22] MEDS: ATORVASTATIN 40 MG TABLET PO SCH (21:16)
[2018-02-22] MEDS: ZOLPIDEM TARTRATE 5 MG TABLET PO PRN (21:21)
--- NOTE | 2018-02-22 21:23 | NUR ---
MS/RN AMBIEN 5 MG PO WAS GIVEN PER PATIENT'S REQUEST FOR SLEEP. WILL MONITOR.
--- NOTE | 2018-02-22 22:58 | NUR ---
MS/RN AWAKE, C/O HEADACHE, TYLENOL 650 MG PO WAS GIVEN ORDERED. WILL MONITOR.
[2018-02-23] MEDS: IV NS 0.9% 1,000 ML IV PRN ×2 (04:40→12:35)
[2018-02-23] MEDS: ACETAMINOPHEN 325 MG TABLET PO PRN ×3 (05:48→20:19)
--- NOTE | 2018-02-23 05:52 | NUR ---
MS/RN PATIENT IS AWAKE. C/O HEADACHE, TYLENOL 650 MG PO WAS GIVEN ORDERED.
--- NOTE | 2018-02-23 06:38 | NUR ---
MS/RN PATIENT IS AWAKE AT THIS TIME, COMFORTABLE, STATED THAT HER HEADACHE IS MUCH BETTER, IVF INFUSING, ALL NEEDS ATTENDED AT THIS TIME, WILL CONTINUE TO MONITOR.
[2018-02-23 07:09] LABS: BASOPHILS # (AUTO) 0.1 /CMM (0.0-0.2); BASOPHILS % (AUTO) 0.6 % (0.0-2.0); EOSINOPHILS % (AUTO) 4.1 % (0.0-6.0); HEMATOCRIT 44 % (33-45); HEMOGLOBIN 14.7 g/dL (11.5-14.8); LYMPHOCYTES # (AUTO) 2.4 /CMM (0.8-4.8); MEAN CORPUSCULAR HEMOGLOBIN 32 PG (26.0-33.0); MEAN CORPUSCULAR HGB CONC 33 g/dl (31.0-36.0); MEAN CORPUSCULAR VOLUME 97 fL (82-100); MONOCYTES % (AUTO) 9.8 % (2.0-12.0); NEUTROPHILS # (AUTO) 6.1 /CMM (1.8-8.9); NEUTROPHILS % (AUTO) 61.5 % (43.0-81.0); PLATELET COUNT (AUTO) 372 /CMM (150-450); RDW COEFFICIENT OF VARIATION 15.2 (11.5-15.0); RED BLOOD CELL COUNT(AUTO) 4.54 MIL/uL (4.0-5.2); WHITE BLOOD COUNT (AUTO) 9.9 K/uL (4.3-11.0)
--- NOTE | 2018-02-23 07:10 | NUR ---
MS/RN OPENING NOTE PATIENT ALERT AND ORIENTED X4. DENIES SOB, DENIES PAIN. RESPIRATION REGULAR AND UNLABORED. LEFT HAND G 22 PATENT AND IV INFUSING WITH NO S/S INFILTRATION. ABDOMEN SOFT AND NON-DISTENDED. VERBAL CUES ARE PROVIDED TO INCREASE SAFETY AWARENESS. BED LOW AND LOCKED. SIDE RAILS UP X3. CALL LIGHT WITHIN REACH. WILL CONTINUE TO MONITOR.
[2018-02-23 07:19] LABS: CARBON DIOXIDE 26 mmol/L (21-32); CHLORIDE 104 mmol/L (98-107); CREATININE 0.7 mg/dL (0.6-1.3); GLUCOSE 95 mg/dL (74-106); POTASSIUM 3.1 mmol/L (3.5-5.1); SODIUM SERUM 139 mmol/L (136-145); UREA NITROGEN, BLOOD 3 mg/dL (7-18)
[2018-02-23 08:00] VITALS: BP 196/77
[2018-02-23] MEDS: DULOXETINE HCL 30 MG CAPSULE.DR PO SCH (08:06)
[2018-02-23] MEDS: OXYBUTYNIN CHLORIDE 5 MG TABLET PO SCH ×3 (08:07→17:29)
[2018-02-23] MEDS: MULTIVITAMINS,THERAGRAN 1 UDTAB TABLET PO SCH (08:07)
[2018-02-23] MEDS: CHOLECALCIFEROL 1,000 UNIT TABLET (VIT D3) PO SCH (08:07)
[2018-02-23] MEDS: LOSARTAN POTASSIUM 50 MG TABLET PO SCH (08:07)
[2018-02-23] MEDS: ARIPIPRAZOLE 5 MG TABLET PO SCH (08:07)
[2018-02-23] MEDS: METOPROLOL TARTRATE 25 MG TABLET PO SCH ×2 (08:07→20:49)
[2018-02-23] MEDS: FOLIC ACID 1 MG TABLET PO SCH (08:07)
--- NOTE | 2018-02-23 08:10 | NUR ---
MS/RN NOTE 0800 PATIENT BLOOD PRESSURE 196/77 AND PULSE 75. PATIENT IN NO APPARENT DISTRESS. LOPRESSOR 25 MG AND COZAAR 50 MG GIVEN ORDERED.
[2018-02-23 09:15] VITALS: BP 133/72
--- NOTE | 2018-02-23 09:15 | NUR ---
MS/RN NOTE PATIENT`S BLOOD PRESSURE 133/72 AND PULSE 80. PATIENT IN NO APPARENT DISTRESS.
[2018-02-23] MEDS ORDERED: POTASSIUM CHLORIDE 20 MEQ TAB.PRT.SR PO ONE (09:30)
[2018-02-23 16:00] VITALS: BP 163/76
--- NOTE | 2018-02-23 17:59 | NUR ---
MS/RN CLOSING NOTE PATIENT ALERT AND ORIENTED X4. DENIES SOB. RESPIRATION REGULAR AND UNLABORED. DENIES PAIN. PATIENT IN NO APPARENT DISTRESS. R HAND G 22 PATENT AND IV INFUSING WITH NO S/S INFILTRATION. PATIENT CONTINENT AND USES BED SIDE COMMODE. VERBAL CUES ARE PROVIDED TO KEEP SAFETY AWARENESS HIGH. BED LOW AND LOCKED. SIDE RAILS UP X3. CALL LIGHT WITHIN REACH. WILL ENDORSE TO RIB CUTTER.
--- NOTE | 2018-02-23 19:40 | NUR ---
MS RN OPENING NOTES PATIENT A/O X4. RESPIRATION REGULAR AND UNLABORED. COMPLAIN OF MILD HEADACHE.WILL GIVE PRN TYLENOL. PATIENT IN NO APPARENT DISTRESS. R HAND G 22 PATENT AND IV INFUSING WITH NO S/S INFILTRATION. PATIENT USES BED SIDE COMMODE. BED LOW AND LOCKED. SIDE RAILS UP X3. CALL LIGHT WITHIN REACH . WILL CONTINUE TO MONITOR.
[2018-02-23 20:00] VITALS: BP 151/78
[2018-02-23] MEDS: ATORVASTATIN 40 MG TABLET PO SCH (20:50)
[2018-02-23] MEDS: ZOLPIDEM TARTRATE 5 MG TABLET PO PRN (23:06)
[2018-02-24] MEDS: ACETAMINOPHEN 325 MG TABLET PO PRN ×3 (03:11→19:15)
[2018-02-24 06:35] LABS: BASOPHILS # (AUTO) 0.1 /CMM (0.0-0.2); BASOPHILS % (AUTO) 0.5 % (0.0-2.0); EOSINOPHILS % (AUTO) 2.8 % (0.0-6.0); HEMATOCRIT 44 % (33-45); HEMOGLOBIN 14.6 g/dL (11.5-14.8); LYMPHOCYTES # (AUTO) 2.7 /CMM (0.8-4.8); MEAN CORPUSCULAR HEMOGLOBIN 32 PG (26.0-33.0); MEAN CORPUSCULAR HGB CONC 33 g/dl (31.0-36.0); MEAN CORPUSCULAR VOLUME 97 fL (82-100); MONOCYTES # (AUTO) 0.9 /CMM (0.1-1.30); MONOCYTES % (AUTO) 8.4 % (2.0-12.0); NEUTROPHILS # (AUTO) 7.2 /CMM (1.8-8.9); NEUTROPHILS % (AUTO) 64.3 % (43.0-81.0); PLATELET COUNT (AUTO) 373 /CMM (150-450); RDW COEFFICIENT OF VARIATION 15.8 (11.5-15.0); RED BLOOD CELL COUNT(AUTO) 4.53 MIL/uL (4.0-5.2); WHITE BLOOD COUNT (AUTO) 11.3 K/uL (4.3-11.0)
--- NOTE | 2018-02-24 06:58 | NUR ---
MS RN CLOSING NOTES PATIENT A/O X4. RESPIRATION REGULAR AND UNLABORED. NO COMPLAINS OF PAIN AT THIS TIME. PATIENT IN NO APPARENT DISTRESS. R HAND G 22 PATENT AND INTACT. PATIENT USES BED SIDE COMMODE. BED LOW AND LOCKED. SIDE RAILS UP X3. CALL LIGHT WITHIN REACH .
[2018-02-24 07:04] LABS: CALCIUM, SERUM 9.1 mg/dL (8.5-10.1); CARBON DIOXIDE 23 mmol/L (21-32); CHLORIDE 104 mmol/L (98-107); CREATININE 0.6 mg/dL (0.6-1.3); GLUCOSE 102 mg/dL (74-106); POTASSIUM 3.2 mmol/L (3.5-5.1); SODIUM SERUM 138 mmol/L (136-145); UREA NITROGEN, BLOOD 4 mg/dL (7-18)
--- NOTE | 2018-02-24 07:42 | NUR ---
MS RN OPENING NOTE RECEIVED PATIENT IN BED, SLEEPING, EASILY AROUSED WITH VERBAL STIMULI, ORIENTED X4. ON ROOM AIR, TOLERATING WELL. RESPIRATION EVEN AND UNLABORED. IN NO APPARENT DISTRESS OR DISCOMFORT AT THIS TIME. L HAND IVC 22G, SL, PATENT AND INTACT. PATIENT IS ABLE TO COMMUNICATE NEEDS. REPORTS PAIN IN RIGHT SHOULDER BLADE 6/10, DENIES SOB. PATIENT IS CONTINENT BUT IS WEARING A DIAPER BY CHOICE, BEDSIDE COMMODE PROVIDED. ABLE TO AMBULATE WITH ASSIST. ALL NEEDS ATTENDED, KEPT CLEAN AND COMFORTABLE, SAFETY MEASURES IN PLACE, BED IN LOW LOCKED POSITION, SIDE RAILS UP X3, BED ALARM ON, CALL LIGHT WITHIN EASY REACH. WILL CONTINUE TO MONITOR.
[2018-02-24 08:00] VITALS: BP 166/84
[2018-02-24 08:58] VITALS: BP 166/84
[2018-02-24] MEDS: ARIPIPRAZOLE 5 MG TABLET PO SCH (09:11)
[2018-02-24] MEDS: DULOXETINE HCL 30 MG CAPSULE.DR PO SCH (09:11)
[2018-02-24] MEDS: FOLIC ACID 1 MG TABLET PO SCH (09:11)
[2018-02-24] MEDS: OXYBUTYNIN CHLORIDE 5 MG TABLET PO SCH ×3 (09:11→16:03)
[2018-02-24] MEDS: LOSARTAN POTASSIUM 50 MG TABLET PO SCH (09:11)
[2018-02-24] MEDS: METOPROLOL TARTRATE 25 MG TABLET PO SCH (09:12)
[2018-02-24] MEDS: CHOLECALCIFEROL 1,000 UNIT TABLET (VIT D3) PO SCH (09:12)
[2018-02-24] MEDS: MULTIVITAMINS,THERAGRAN 1 UDTAB TABLET PO SCH (09:16)
[2018-02-24] MEDS: IV NS 0.9% 1,000 ML IV PRN (09:17)
[2018-02-24] MEDS ORDERED: ARIP5TAB10 PO (09:37)
[2018-02-24] MEDS ORDERED: LORA1TAB PO (09:37)
[2018-02-24] MEDS: POTASSIUM CHLORIDE 20 MEQ TAB.PRT.SR PO SCH ×2 (12:08→13:09)
[2018-02-24] MEDS ORDERED: LEVOFLOXACIN (500MG) 500 MG TABLET PO SCH (13:00)
--- NOTE | 2018-02-24 14:00 | NUR ---
PATIENT WITH ORDER FOR DC/TRANSFER. AMBULANCE ARRIVED FOR PICKUP, AT THE TIME PATIENT'S VITAL SIGNS RECHECKED AND IT WAS HIGH 180/70 WITH HR OF 66. PATIENT DID NOT APPEAR IN DISTRESS. RECHECKED BP MANUALLY, AND THE RESULTS WERE CONSISTENT WITH PREVIOUS RESULTS: 180/75. DR ÁLVAREZ WAS MADE AWARE. ORDER RECEIVED FOR HYDRALAZINE 25MG PO ONCE NOW. MEDICATION WAS ADMINISTERED ORDERED. WILL CONTINUE TO MONITOR. AMBULANCE IS STILL IN THE UNIT WAITING.
[2018-02-24] MEDS ORDERED: hydrALAZINE HCL 25 MG TABLET PO ONE (14:30)
--- NOTE | 2018-02-24 14:54 | NUR ---
PATIENT'S BP RECHECKED 15 MINUTES AFTER MEDICATION ADMINISTRATION 182/91. CALLED THE [facility] SPOKE TO ERIN, UPDATED ABOUT PATIENT'S CURRENT CONDITION. DECISION WAS MADE TO LEAVE THE PATIENT AT THE HOSPITAL FOR NOW UNTIL THE BP STABILIZES. AMBULANCE LEFT, TO BE RESCHEDULED TO A LATER TIME FOR PICKUP. WILL CONTINUE TO MONITOR FOR IMPROVEMENT IN PATIENTS VITAL SIGNS AND TRANSFER WHEN STABLE.
[2018-02-24 16:13] VITALS: BP 158/72
--- NOTE | 2018-02-24 16:15 | NUR ---
PATIENT BP DECREASED TO 158/72, HR OF 77. SCHEDULED THE AMBULANCE FOR WAIT STAFF. ESTIMATED PICKUP TIME [id number].
--- NOTE | 2018-02-24 19:15 | NUR ---
RN NOTES WHILE GETTING A BEDSIDE REPORT FROM AM SHIFT NURSE, [facility] TRANSPORTATION ARRIVED TO KEG HEADER PATIENT FOR TRANSFER TO SNF. PT IS ALERT AND ORIENTED X 3, IN NO ACUTE DISTRESS, VERBALLY RESPONSIVE, BREATHING EVEN AND UNLABORED. PT REQUESTED FOR TYLENOL BEFORE LEAVING FOR 3/10 PAIN LEVEL. ADMINISTERED ORDERED. AM SHIFT NURSE, ARPITA MAR, GAVE REPORT TO [facility] TRANSPORTATION PERSONNEL AND TO [facility] ACCEPTING RN.
--- NOTE | 2018-02-24 19:29 | NUR ---
MS ASSOCIATE TECHNICIAN NOTE AMBULANCE PICKED UP THE PATIENT TO TRANSFER TO [facility]. PATIENT WAS ALERT ORIENTED X3, ON ROOM AIR WITH O2 SATURATION OF 96%. IN NO APPARENT DISTRESS OR DISCOMFORT, RESPIRATIONS EVEN AND UNLABORED, UPDATED REPORT GIVEN TO WINIFRED AT THE FACILITY, PATIENT'S RECENT VITAL SIGNS WERE 162/87, HR OF 86, WHICH IS HER BASELINE. DISCHARGE INSTRUCTIONS GIVEN TO THE PATIENT. ORDERED MEDICATIONS REVIEWED AND ENCOURAGED TO TAKE INDICATED AND ORDERED. MEDICAL RECORDS ATTACHED TO HER PERSONAL FOLDER. BELONGINGS CHECKED AND ACCOUNTED FOR. PICTURES TAKEN AND PLACED IN CHART. IVC REMOVED, TIP INTACT. ID BAND REMOVED PRIOR TO LEAVING THE FACILITY. PATIENT LEFT THE FACILITY VIA AMBULANCE AT 1920.
== END 2018-02-24 19:22 | DRG 917 ==
LOC: ER 04:10 → TELE 08:20 → MED 02-22 08:10
PROVIDERS: ADMIT Family Medicine; ATTEND Family Medicine
DX: T50.901A Poisoning by unspecified drugs, medicaments and biological substances, accidental (unintentional), initial encounter (principal); G92 Toxic encephalopathy; E87.2 Acidosis; F33.9 Major depressive disorder, recurrent, unspecified; Y92.009 Unspecified place in unspecified non-institutional (private) residence as the place of occurrence of the external cause; E78.5 Hyperlipidemia, unspecified; G89.29 Other chronic pain; M19.90 Unspecified osteoarthritis, unspecified site; I10 Essential (primary) hypertension; Z88.2 Allergy status to sulfonamides; Z79.899 Other long term (current) drug therapy; Z96.659 Presence of unspecified artificial knee joint; Z98.1 Arthrodesis status; R73.9 Hyperglycemia, unspecified; E87.6 Hypokalemia
CPT/HCPCS: 36415; 70450-TC; 71045-TC; 80048-TC; 80061-TC; 80076-TC; 80305; 81000-TC; 82962-TC; 83605-TC; 83735-TC; 84100-TC; 84484-TC; 85025-TC; 85730-TC; 87040-TC; 87081-TC; 87086-TC; 87186-TC; A4606; G0480; J0696; J1630; J2060; J2405; J7030; Z7610

== ENCOUNTER 2018-03-08 05:02 | Inpatient (IN) | payer MEDICARE ==
[~2018-03-08] VITALS: Ht 157.5 cm; Wt 74.8 kg
[~2018-03-08 05:02] MED LIST changes: -ARIP2TAB3 PO; +ARIP5TAB10 PO; -BUPR-51 PO; -BUTA1CAP46 PO; +DULO60CA45 PO; -GABA400C PO; -HYDR-548 PO; +LORA1TAB PO; +LOSA50TA21 PO; +SOLI10TA2 PO
[2018-03-08] MEDS ORDERED: ACETAMINOPHEN 325 MG TABLET ONE (06:10)
[2018-03-08] MEDS ORDERED: oxyCODONE HCL SR 10MG TAB.SR.12H PO ONE (06:10)
[2018-03-08] MEDS ORDERED: CELECOXIB 100 MG CAPSULE ONE (06:10)
[2018-03-08] MEDS ORDERED: BACITRACIN 50000 UNITS/VIAL ONE (06:41)
[2018-03-08] MEDS ORDERED: ANESTHESIA TRAY IN PYXIS 1 EA TRAY MC ONE (06:41)
[2018-03-08] MEDS ORDERED: MEPERIDINE HCL/PF 100 MG/ML DISP.SYRIN ONE ×2 (06:49→09:02)
[2018-03-08] MEDS ORDERED: MIDAZOLAM HCL 2 MG/2ML VIAL ONE (06:49)
[2018-03-08] MEDS ORDERED: FENTANYL PF 100MCG/2ML AMPUL ONE (06:50)
[2018-03-08] MEDS ORDERED: SUCCINYLCHOLINE CHLORIDE 20 MG/ML VIAL ONE (06:55)
[2018-03-08] MEDS ORDERED: ROCURONIUM BROMIDE 50 MG/5 ML ONE (06:55)
[2018-03-08] MEDS ORDERED: TRANEXAMIC ACID 3,000 MG in SODIUM CHLORIDE IRRIG SOLUTION 70 ML IR ONE (07:00)
[2018-03-08] MEDS ORDERED: HYDROMORPHONE INJ 2 MG/ML DISP.SYRIN ONE (08:47)
[2018-03-08] MEDS ORDERED: HYDROCODONE/APAP 5/325MG 1 EACH TABLET PO PRN (09:30)
[2018-03-08] MEDS ORDERED: COLACE 250 MG CAPSULE PO PRN (09:30)
[2018-03-08] MEDS ORDERED: diphenhydrAMINE HCL 25 MG CAPSULE PO PRN (09:30)
[2018-03-08] MEDS ORDERED: TYLENOL 650 MG TABLET PO PRN (09:30)
[2018-03-08] MEDS ORDERED: ZOFRAN 4mg/2ML IV PRN (09:30)
[2018-03-08] MEDS ORDERED: HYDROMORPHONE 1 MG/1 ML DISP.SYRIN SQ PRN (09:30)
[2018-03-08] MEDS ORDERED: CLONIDINE HCL 0.1 MG TABLET PO PRN (09:30)
[2018-03-08] MEDS ORDERED: ONDANSETRON HCL/PF 4 MG/2 ML VIAL IV PRN (09:30)
[2018-03-08] MEDS ORDERED: SENOKOT 8.6 MG TABLET PO PRN (09:30)
[2018-03-08] MEDS ORDERED: MAGNESIUM HYDROXIDE 30 ML UDC PO PRN ×2 (09:30→11:30)
[2018-03-08] MEDS ORDERED: HYDROMORPHONE INJ 2 MG/ML DISP.SYRIN IV PRN (09:30)
[2018-03-08] MEDS ORDERED: MAG HYDROX/AL HYDROX/SIMETH 30 ML UDC PO PRN ×2 (09:30→11:30)
[2018-03-08] MEDS ORDERED: BUTALB/APAP/CAFFEINE 1 EACH TABLET PO PRN (09:30)
[2018-03-08] MEDS ORDERED: DULCOLAX 10 MG/SUPP.RECT RC PRN (09:30)
[2018-03-08 09:45] VITALS: BP 122/63
[2018-03-08 10:00] VITALS: BP 130/61
[2018-03-08] MEDS ORDERED: LORAZEPAM 1 MG TABLET PO PRN (10:00)
[2018-03-08 10:15] VITALS: BP 111/62
[2018-03-08 10:30] VITALS: BP 105/55
[2018-03-08 11:00] VITALS: BP 111/55
[2018-03-08] MEDS ORDERED: IV NS 0.9% 1,000 ML IV PRN (11:08)
[2018-03-08] MEDS: HYDROCODONE/APAP 10/325MG 1 EA TABLET PO PRN ×3 (11:09→18:25)
[2018-03-08] MEDS: IV LR 1000 ML 1,000 ML IV PRN (11:12)
[2018-03-08] MEDS ORDERED: ACETAMINOPHEN 325 MG TABLET PO PRN (11:30)
[2018-03-08] MEDS ORDERED: ONDANSETRON HCL/PF 4 MG/2 ML VIAL IVP PRN (11:30)
[2018-03-08] MEDS ORDERED: NA P133E RC (12:23)
[2018-03-08] MEDS ORDERED: ARIP5TAB10 PO (12:23)
[2018-03-08] MEDS ORDERED: GABA-532 PO (12:23)
[2018-03-08] MEDS ORDERED: ACET-868 PO (12:23)
[2018-03-08] MEDS ORDERED: SENN-18 PO (12:23)
[2018-03-08] MEDS ORDERED: BISA10SU8 RC (12:23)
[2018-03-08] MEDS ORDERED: MAGN400O6 PO (12:23)
[2018-03-08] MEDS ORDERED: HYDR-552 PO (12:23)
[2018-03-08] MEDS: OXYBUTYNIN CHLORIDE 5 MG TABLET PO SCH (16:46)
[2018-03-08] MEDS: DOCUSATE SODIUM 100 MG CAPSULE PO SCH (16:46)
[2018-03-08] MEDS: ANCEF 1 G in IV D5W 50 ML IV SCH (16:46)
[2018-03-08] MEDS ORDERED: Z GUARD REMEDY 2 OZ OINT TP PRN (19:00)
[2018-03-08 20:00] VITALS: BP 106/67
[2018-03-08] MEDS ORDERED: buPROPion SR 100 MG TABLET.ER PO SCH (21:00)
[2018-03-08] MEDS: PANTOPRAZOLE 40 MG TABLET.DR PO SCH (21:19)
[2018-03-08] MEDS: ATORVASTATIN 40 MG TABLET PO SCH (21:19)
[2018-03-08] MEDS: CARVEDILOL 12.5 MG TABLET PO SCH (21:20)
[2018-03-08] MEDS: RIVAROXABAN 10 MG TABLET PO SCH (21:38)
[2018-03-08] MEDS: AMBIEN 5 MG TABLET PO PRN (23:21)
[2018-03-09] MEDS: AMBIEN 5 MG TABLET PO PRN ×2 (00:15→21:50)
[2018-03-09] MEDS: ANCEF 1 G in IV D5W 50 ML IV SCH (00:19)
[2018-03-09] MEDS: IV LR 1000 ML 1,000 ML IV PRN ×2 (00:19→17:12)
[2018-03-09] MEDS: HYDROCODONE/APAP 10/325MG 1 EA TABLET PO PRN ×3 (02:04→19:23)
[2018-03-09 06:33] LABS: BASOPHILS % (AUTO) 0.3 % (0.0-2.0); EOSINOPHILS % (AUTO) 0.4 % (0.0-6.0); HEMATOCRIT 32 % (33-45); HEMOGLOBIN 10.7 g/dL (11.5-14.8); LYMPHOCYTES # (AUTO) 1.9 /CMM (0.8-4.8); LYMPHOCYTES % (AUTO) 22.8 % (20.0-44.0); MEAN CORPUSCULAR HEMOGLOBIN 33 PG (26.0-33.0); MEAN CORPUSCULAR HGB CONC 34 g/dl (31.0-36.0); MEAN CORPUSCULAR VOLUME 97 fL (82-100); MONOCYTES # (AUTO) 0.9 /CMM (0.1-1.30); MONOCYTES % (AUTO) 10.8 % (2.0-12.0); NEUTROPHILS # (AUTO) 5.6 /CMM (1.8-8.9); NEUTROPHILS % (AUTO) 65.7 % (43.0-81.0); PLATELET COUNT (AUTO) 308 /CMM (150-450); RDW COEFFICIENT OF VARIATION 15.1 (11.5-15.0); RED BLOOD CELL COUNT(AUTO) 3.29 MIL/uL (4.0-5.2); WHITE BLOOD COUNT (AUTO) 8.5 K/uL (4.3-11.0)
[2018-03-09] MEDS ORDERED: DRONABINOL (2.5 MG) 2.5 MG CAPSULE PO ONE (06:54)
[2018-03-09 07:05] LABS: CALCIUM, SERUM 8.7 mg/dL (8.5-10.1); CARBON DIOXIDE 27 mmol/L (21-32); CHLORIDE 107 mmol/L (98-107); CREATININE 0.7 mg/dL (0.6-1.3); GLUCOSE 93 mg/dL (74-106); PHOSPHORUS 4.3 mg/dL (2.5-4.9); POTASSIUM 4.2 mmol/L (3.5-5.1); SODIUM SERUM 139 mmol/L (136-145); UREA NITROGEN, BLOOD 12 mg/dL (7-18)
[2018-03-09 07:06] LABS: CHOLESTEROL 126 mg/dL (<200); HDL CHOLESTEROL 56 mg/dL (40-60); LDL 61 mg/dL (0-99); TRIGLYCERIDES 66 mg/dL (30-150)
[2018-03-09] MEDS ORDERED: PANTOPRAZOLE 40 MG TABLET.DR PO SCH (07:30)
[2018-03-09 08:00] VITALS: BP 127/71
[2018-03-09] MEDS: CHOLECALCIFEROL 1,000 UNIT TABLET (VIT D3) PO SCH (08:20)
[2018-03-09] MEDS: FOLIC ACID 1 MG TABLET PO SCH (08:20)
[2018-03-09] MEDS: LOSARTAN POTASSIUM 50 MG TABLET PO SCH (08:20)
[2018-03-09] MEDS: DULOXETINE HCL 30 MG CAPSULE.DR PO SCH (08:21)
[2018-03-09] MEDS: OXYBUTYNIN CHLORIDE 5 MG TABLET PO SCH ×3 (08:21→17:08)
[2018-03-09] MEDS: DRONABINOL (2.5 MG) 2.5 MG CAPSULE PO SCH ×2 (08:21→20:31)
[2018-03-09] MEDS: DOCUSATE SODIUM 100 MG CAPSULE PO SCH ×2 (08:21→17:08)
[2018-03-09] MEDS: CARVEDILOL 12.5 MG TABLET PO SCH ×2 (08:23→21:02)
[2018-03-09] MEDS: MULTIVITAMINS,THERAGRAN 1 UDTAB TABLET PO SCH (08:28)
[2018-03-09] MEDS: LORAZEPAM 1 MG TABLET PO PRN ×2 (10:18→23:44)
[2018-03-09] MEDS: HYDROMORPHONE INJ 2 MG/ML DISP.SYRIN SQ PRN (14:53)
[2018-03-09 16:00] VITALS: BP_SYST 123; BP_SYST 98; BP_DIAS 64
[2018-03-09] MEDS: RIVAROXABAN 10 MG TABLET PO SCH (17:08)
[2018-03-09 20:00] VITALS: BP_SYST 124; BP_SYST 134; BP_DIAS 58; BP_DIAS 64
[2018-03-09] MEDS: PANTOPRAZOLE 40 MG TABLET.DR PO SCH (21:02)
[2018-03-09] MEDS: ATORVASTATIN 40 MG TABLET PO SCH (21:02)
[2018-03-10] MEDS: HYDROCODONE/APAP 10/325MG 1 EA TABLET PO PRN ×4 (05:52→21:10)
[2018-03-10 07:08] LABS: BASOPHILS % (AUTO) 0.5 % (0.0-2.0); EOSINOPHILS % (AUTO) 2.7 % (0.0-6.0); HEMATOCRIT 33 % (33-45); HEMOGLOBIN 10.8 g/dL (11.5-14.8); LYMPHOCYTES # (AUTO) 2.4 /CMM (0.8-4.8); LYMPHOCYTES % (AUTO) 28.8 % (20.0-44.0); MEAN CORPUSCULAR HEMOGLOBIN 32 PG (26.0-33.0); MEAN CORPUSCULAR HGB CONC 33 g/dl (31.0-36.0); MEAN CORPUSCULAR VOLUME 97 fL (82-100); MONOCYTES # (AUTO) 0.8 /CMM (0.1-1.30); MONOCYTES % (AUTO) 9.5 % (2.0-12.0); NEUTROPHILS # (AUTO) 4.8 /CMM (1.8-8.9); NEUTROPHILS % (AUTO) 58.5 % (43.0-81.0); PLATELET COUNT (AUTO) 316 /CMM (150-450); RDW COEFFICIENT OF VARIATION 15.5 (11.5-15.0); RED BLOOD CELL COUNT(AUTO) 3.35 MIL/uL (4.0-5.2); WHITE BLOOD COUNT (AUTO) 8.3 K/uL (4.3-11.0)
[2018-03-10 07:25] LABS: CALCIUM, SERUM 8.6 mg/dL (8.5-10.1); CARBON DIOXIDE 28 mmol/L (21-32); CHLORIDE 106 mmol/L (98-107); CREATININE 0.7 mg/dL (0.6-1.3); GLUCOSE 85 mg/dL (74-106); POTASSIUM 3.8 mmol/L (3.5-5.1); SODIUM SERUM 142 mmol/L (136-145); UREA NITROGEN, BLOOD 8 mg/dL (7-18)
[2018-03-10 08:00] VITALS: BP_SYST 120; BP_SYST 134; BP_DIAS 67; BP_DIAS 74
[2018-03-10] MEDS: MULTIVITAMINS,THERAGRAN 1 UDTAB TABLET PO SCH (09:00)
[2018-03-10] MEDS: DULOXETINE HCL 30 MG CAPSULE.DR PO SCH (09:34)
[2018-03-10] MEDS: DRONABINOL (2.5 MG) 2.5 MG CAPSULE PO SCH ×2 (09:34→20:34)
[2018-03-10] MEDS: DOCUSATE SODIUM 100 MG CAPSULE PO SCH ×2 (09:34→16:46)
[2018-03-10] MEDS: FOLIC ACID 1 MG TABLET PO SCH (09:34)
[2018-03-10] MEDS: LOSARTAN POTASSIUM 50 MG TABLET PO SCH (09:35)
[2018-03-10] MEDS: OXYBUTYNIN CHLORIDE 5 MG TABLET PO SCH ×3 (09:35→16:46)
[2018-03-10] MEDS: CARVEDILOL 12.5 MG TABLET PO SCH ×2 (09:35→20:35)
[2018-03-10] MEDS: CHOLECALCIFEROL 1,000 UNIT TABLET (VIT D3) PO SCH (09:36)
[2018-03-10] MEDS: GABAPENTIN 400 MG CAPSULE PO SCH ×2 (13:35→16:45)
[2018-03-10 16:00] VITALS: BP 130/70
[2018-03-10] MEDS: RIVAROXABAN 10 MG TABLET PO SCH (16:48)
[2018-03-10 20:00] VITALS: BP 120/59
[2018-03-10] MEDS: ATORVASTATIN 40 MG TABLET PO SCH (21:09)
[2018-03-10] MEDS: PANTOPRAZOLE 40 MG TABLET.DR PO SCH (21:09)
[2018-03-10] MEDS: AMBIEN 5 MG TABLET PO PRN (23:29)
[2018-03-10] MEDS: HYDROMORPHONE INJ 2 MG/ML DISP.SYRIN SQ PRN (23:59)
[2018-03-11] MEDS: HYDROCODONE/APAP 10/325MG 1 EA TABLET PO PRN ×2 (04:55→16:20)
[2018-03-11 07:04] LABS: BASOPHILS % (AUTO) 0.6 % (0.0-2.0); EOSINOPHILS % (AUTO) 3.4 % (0.0-6.0); HEMATOCRIT 32 % (33-45); HEMOGLOBIN 10.6 g/dL (11.5-14.8); LYMPHOCYTES # (AUTO) 2.5 /CMM (0.8-4.8); LYMPHOCYTES % (AUTO) 31.1 % (20.0-44.0); MEAN CORPUSCULAR HEMOGLOBIN 33 PG (26.0-33.0); MEAN CORPUSCULAR HGB CONC 34 g/dl (31.0-36.0); MEAN CORPUSCULAR VOLUME 97 fL (82-100); MONOCYTES # (AUTO) 0.8 /CMM (0.1-1.30); MONOCYTES % (AUTO) 10.1 % (2.0-12.0); NEUTROPHILS # (AUTO) 4.3 /CMM (1.8-8.9); NEUTROPHILS % (AUTO) 54.8 % (43.0-81.0); PLATELET COUNT (AUTO) 305 /CMM (150-450); RDW COEFFICIENT OF VARIATION 15.5 (11.5-15.0); RED BLOOD CELL COUNT(AUTO) 3.26 MIL/uL (4.0-5.2); WHITE BLOOD COUNT (AUTO) 7.9 K/uL (4.3-11.0)
[2018-03-11 08:00] VITALS: BP 131/69
[2018-03-11] MEDS: LOSARTAN POTASSIUM 50 MG TABLET PO SCH (08:26)
[2018-03-11 08:27] VITALS: BP 131/69
[2018-03-11] MEDS: OXYBUTYNIN CHLORIDE 5 MG TABLET PO SCH ×3 (08:27→16:18)
[2018-03-11] MEDS: DRONABINOL (2.5 MG) 2.5 MG CAPSULE PO SCH (08:27)
[2018-03-11] MEDS: FOLIC ACID 1 MG TABLET PO SCH (08:27)
[2018-03-11] MEDS: CARVEDILOL 12.5 MG TABLET PO SCH (08:27)
[2018-03-11] MEDS: DULOXETINE HCL 30 MG CAPSULE.DR PO SCH (08:28)
[2018-03-11] MEDS: DOCUSATE SODIUM 100 MG CAPSULE PO SCH ×2 (08:28→16:17)
[2018-03-11] MEDS: GABAPENTIN 400 MG CAPSULE PO SCH ×3 (08:28→16:17)
[2018-03-11] MEDS: CHOLECALCIFEROL 1,000 UNIT TABLET (VIT D3) PO SCH (08:28)
[2018-03-11] MEDS: HYDROMORPHONE INJ 2 MG/ML DISP.SYRIN SQ PRN ×2 (08:29→12:10)
[2018-03-11] MEDS: MULTIVITAMINS,THERAGRAN 1 UDTAB TABLET PO SCH (08:35)
[2018-03-11] MEDS ORDERED: DOCU-141 PO (14:36)
[2018-03-11] MEDS ORDERED: BISA10SU8 RC (14:36)
[2018-03-11] MEDS ORDERED: PANT40TA2 PO (14:36)
[2018-03-11] MEDS ORDERED: RIVA10TA PO (14:36)
[2018-03-11] MEDS ORDERED: DRON2.5C3 PO (14:36)
[2018-03-11] MEDS ORDERED: CLON0.1T14 PO (14:36)
[2018-03-11] MEDS: RIVAROXABAN 10 MG TABLET PO SCH (16:18)
== END 2018-03-11 18:15 | DRG 470 ==
LOC: DS 05:02 → MED 09:58
PROVIDERS: ADMIT Specialist; ATTEND Specialist
PROC: 0SRB0JZ Replacement of Left Hip Joint with Synthetic Substitute, Open Approach (ICD-10-PCS; principal; 2018-03-08 07:00)
DX: M16.12 Unilateral primary osteoarthritis, left hip (principal); K21.9 Gastro-esophageal reflux disease without esophagitis; D63.8 Anemia in other chronic diseases classified elsewhere; E78.5 Hyperlipidemia, unspecified; I10 Essential (primary) hypertension; G89.29 Other chronic pain; M54.9 Dorsalgia, unspecified; F32.9 Major depressive disorder, single episode, unspecified; F12.90 Cannabis use, unspecified, uncomplicated; F41.9 Anxiety disorder, unspecified; Z96.659 Presence of unspecified artificial knee joint
CPT/HCPCS: 36415; 80048-TC; 80061-TC; 80305; 83735-TC; 84100-TC; 85025-TC; 86850-TC; 86921-TC; 87081-TC; 88305-TC; 88311-TC; 97110-TC; 97116-TC; 97530-TC; A4217; J0330; J0690; J1170; J2175; J2250; J3010; J7060; J7120; Q0167